=== PATIENT | female | born 1975 | race Caucasian/White ===

== ENCOUNTER 2017-01-25 17:14 | Emergency (ER) | payer OTHER | END 2017-01-25 20:35 | disposition home or self-care (01) | LOC: ER1 17:14 | DX: S02.5XXA Fracture of tooth (traumatic), initial encounter for closed fracture (principal); I10 Essential (primary) hypertension; F17.210 Nicotine dependence, cigarettes, uncomplicated; Z88.5 Allergy status to narcotic agent; X58.XXXA Exposure to other specified factors, initial encounter | CPT/HCPCS: 96372; 99282; J1885 ==

== ENCOUNTER 2017-02-19 22:58 | Emergency (ER) | payer OTHER ==
[2017-02-19 23:25] LABS: HEMOGLOBIN 14.6 gm/dl (12.3-15.3); RED BLOOD COUNT 5.23 M/UL (4.00-5.10); WHITE BLOOD COUNT 12.4 K/UL (4.5-11.0)
[2017-02-19 23:50] LABS: BUN/CREATININE RATIO 13 (0-10)
== END 2017-02-20 04:10 | disposition home or self-care (01) ==
LOC: ER1 22:58
PROVIDERS: Physician Assistant
DX: R07.9 Chest pain, unspecified (principal); E87.6 Hypokalemia; F41.9 Anxiety disorder, unspecified; F17.200 Nicotine dependence, unspecified, uncomplicated; Z88.0 Allergy status to penicillin; Z88.5 Allergy status to narcotic agent; Z79.899 Other long term (current) drug therapy
CPT/HCPCS: 36415; 71020; 80053; 82550; 82553; 83874; 84484; 85025; 93005; 99285

== ENCOUNTER 2020-10-17 09:58 | Emergency (ER) | payer OTHER ==
[~2020-10-17 09:58] MED LIST: AMOXICILLIN500 MG PO; BACLOFEN10 MG PO; CLARITIN10 M1 PO; CLEOCIN 150MG150 MG PO; CLEOCIN HCL300 MG PO; EFFEXOR 25 MG T25 MG PO; EFFEXOR XR150 MG PO; HYDROCHLOROTHIA25 MG PO; IBUPROFEN600 MG PO; PENVEE K 500 M500 MG PO; PHENERGAN 25 MG25 M1 PO; PRILOSEC OTC20 MG PO; TYLENOL 500 MG500 MG PO; VOLTAREN EC 5050 MG PO; Viscous lidocaine2% TOP; ZOFRAN ODT 4 MG4 MG SL; ZOFRAN4 MG PO
== END 2020-10-18 12:15 ==
LOC: ER1 09:58
DX: R45.851 Suicidal ideations (principal); I10 Essential (primary) hypertension; K21.9 Gastro-esophageal reflux disease without esophagitis; F17.200 Nicotine dependence, unspecified, uncomplicated; F32.9 Major depressive disorder, single episode, unspecified; Z20.822 Contact with and (suspected) exposure to COVID-19
CPT/HCPCS: 99285; Q0177; U0002

== ENCOUNTER 2020-11-08 13:27 | Emergency (ER) | payer OTHER ==
[2020-11-08] MEDS ORDERED: IBUPROFEN600 MG PO (16:20)
== END 2020-11-08 17:59 | disposition home or self-care (01) ==
LOC: ER1 13:27
DX: S33.5XXA Sprain of ligaments of lumbar spine, initial encounter (principal); S60.222A Contusion of left hand, initial encounter; S00.83XA Contusion of other part of head, initial encounter; S90.02XA Contusion of left ankle, initial encounter; F17.210 Nicotine dependence, cigarettes, uncomplicated; W19.XXXA Unspecified fall, initial encounter
CPT/HCPCS: 71046; 72131; 73100; 73130; 73610; 96372; 99284; J1885

== ENCOUNTER 2020-11-10 12:49 | Observation (INO) | payer OTHER ==
[~2020-11-10] VITALS: Ht 175.3 cm; Wt 113.4 kg
[2020-11-10 14:01] LABS: HEMOGLOBIN 12.9 gm/dl (12.3-15.3); RED BLOOD COUNT 4.51 M/UL (4.00-5.10); WHITE BLOOD COUNT 9.4 K/UL (4.5-11.0)
[2020-11-10] MEDS ORDERED: CATAPRES 0.1MG0.1 MG PO (18:37)
[2020-11-10] MEDS ORDERED: WELLBUTRIN XL300 M1 PO (18:39)
[2020-11-10] MEDS ORDERED: TRAMADOL HCL50 MG PO (18:40)
[2020-11-10] MEDS ORDERED: GABAPENTIN300 MG PO (18:40)
[2020-11-10] MEDS ORDERED: VISTARIL50 MG PO (21:06)
[2020-11-11 03:41] LABS: HEMOGLOBIN 11.5 gm/dl (12.3-15.3); RED BLOOD COUNT 4.12 M/UL (4.00-5.10); WHITE BLOOD COUNT 7.2 K/UL (4.5-11.0)
--- NOTE | 2020-11-11 09:07 | NUR ---
PATIENT REQUEST FOR ATIVAN AND NICOTINE PATCH. VERBALLY ABUSIVE AND AGRESSIVE THAT REQUIRES HOST/HOSTESS HEAD PRESENCE. [facility]INT HAVE ALREADY 1:1 SITTER. WAS ABLE TO CONTACT MD AND INFORMED OF THE ABOVE AND RECEIVED ORDER.
--- NOTE | 2020-11-11 11:01 | NUR ---
checked patient several times and sleeping comfortably, snoring at times. sitter 1:1
--- NOTE | 2020-11-12 12:57 | NUR ---
in the room and dr. haque ordered not to restart patient IV
--- NOTE | 2020-11-12 17:43 | NUR ---
CONTACTED [employer] [facility] AND WAS ABLE TO SPOKE TO A LADY WITH ACKNOWLEDGEMENT OF RECEIVING THE FAX AND WAS INFORMED TO WAIT FOR A CALL FROM A [employer].
--- NOTE | 2020-11-12 17:59 | NUR ---
FOLLOW UP CALL FOR JIE EVAL AND WAS INFORMED THAT THEY WILL CALL BACK FOR TELEHEALTH EVALUATION. NOTIFIED DR. SMITH AND PATIENT.
[2020-11-12] MEDS ORDERED: NICOTINE PATCH1 EAC2 TOP (19:42)
--- NOTE | 2020-11-13 00:25 | NUR ---
PT ACCEPTED BY [facility]; CALLED REPORT A NURSE ERNA AT APPROX 0020; PT ESCORTED DOWN WITH SITTER AT APPROX 2330. [facility]. NOTIFIED SECURITY HERE OF PT BELONGINGS; PHARMACY WAS CONTACTED. SECURITY RECEIVED PTS BELONGINGS AND BELONGINGS WERE RETURNED TO PT UPON EXITING THE BUILDING.
== END 2020-11-12 23:25 | disposition other institution (70) ==
LOC: ER1 12:49 → CDU 16:06 → M/S 18:09
PROVIDERS: Physician Assistant Medical; ADMIT Internal Medicine Infectious Disease
DX: F32.9 Major depressive disorder, single episode, unspecified (principal); R45.851 Suicidal ideations; F29 Unspecified psychosis not due to a substance or known physiological condition; E87.1 Hypo-osmolality and hyponatremia; E87.6 Hypokalemia; E83.42 Hypomagnesemia; N17.9 Acute kidney failure, unspecified; I10 Essential (primary) hypertension; F17.200 Nicotine dependence, unspecified, uncomplicated; Z20.822 Contact with and (suspected) exposure to COVID-19; Z79.899 Other long term (current) drug therapy
CPT/HCPCS: 36415; 80048; 80053; 80307; 81001; 82436; 82570; 83735; 83930; 83935; 84132; 84133; 84300; 84439; 84443; 85025; 85027; 93005; 99285; G0378; J2060; J3475; J7040; Q0177; U0002

== ENCOUNTER 2021-01-07 14:19 | Emergency (ER) | payer OTHER ==
[~2021-01-07 14:19] MED LIST changes: +CATAPRES 0.1MG0.1 MG PO; +GABAPENTIN300 MG PO; +NICOTINE PATCH1 EAC2 TOP; +TRAMADOL HCL50 MG PO; +VISTARIL50 MG PO; +WELLBUTRIN XL300 M1 PO
[2021-01-07] MEDS ORDERED: AUGMENTIN 875-1 EACH PO (15:46)
== END 2021-01-07 15:56 | disposition home or self-care (01) ==
LOC: ER1 14:19
DX: M25.532 Pain in left wrist (principal); H66.91 Otitis media, unspecified, right ear; I10 Essential (primary) hypertension; F17.290 Nicotine dependence, other tobacco product, uncomplicated; Z79.899 Other long term (current) drug therapy
CPT/HCPCS: 73110; 99283

== ENCOUNTER 2021-01-24 15:18 | Inpatient (IN) | payer OTHER ==
[~2021-01-24] VITALS: Ht 175.3 cm; Wt 133.6 kg
[~2021-01-24 15:18] MED LIST changes: +AUGMENTIN 875-1 EACH PO
[2021-01-24 17:09] LABS: HEMOGLOBIN 12.8 gm/dl (12.3-15.3); RED BLOOD COUNT 4.39 M/UL (4.00-5.10)
[2021-01-24 17:37] LABS: BUN/CREATININE RATIO 10 (0-10)
[2021-01-24] MEDS ORDERED: HYDROCHLOROTHIA50 MG PO (20:37)
[2021-01-24] MEDS ORDERED: PHENERGAN 25 MG25 M1 PO (20:37)
[2021-01-24] MEDS ORDERED: FLONASE 0.05% N16 GM (20:37)
[2021-01-24] MEDS ORDERED: NAPROXEN375 MG PO (20:37)
[2021-01-24] MEDS ORDERED: VITAMIN B COMP1 EACH PO (20:38)
[2021-01-24] MEDS ORDERED: OMEPRAZOLE40 MG PO (20:38)
[2021-01-24] MEDS ORDERED: TRAMADOL HCL50 MG PO (20:39)
[2021-01-24] MEDS ORDERED: LISINOPRIL20 MG PO (20:39)
[2021-01-24] MEDS ORDERED: LIORESAL TAB 1010 MG PO (20:39)
[2021-01-24] MEDS ORDERED: VISTARIL 50 MG50 MG PO (20:40)
[2021-01-24] MEDS ORDERED: XANAX0.5 MG PO (20:44)
[2021-01-24] MEDS ORDERED: VENLAFAXINE HC150 M1 PO (20:46)
--- NOTE | 2021-01-25 03:46 | NUR ---
SINCE ARRIVING TO FLOOR, PT HAS BEEN RUDE, DEMANDING AND BELITTING TO STAFF. DATA SCIENTIST MADE AWARE. PT BEGAN REFUSING STONE CATHETER, EVEN THOUGH SHE CLAIMED TO NOT HAVE URINATED IN 2 DAYS TIME. AFTER ONE HOUR OF CONVINCING EDUCATION, PT AGREED TO STONE CATHETER INSERTION. PT IS NOT AN EASY IV STICK. PT HAD IV IN LAC WITH CONTINUOUS FLUIDS RUNNING. PT NEEDED NEW IV. AFTER 2 STICKS BY MARILOU MALLOY RN, PT OBTAINED 20G TO RAC. PT STILL C/O ISSUES, BUT REFUSES TO LEAVE ARM STRAIGHT EVEN WITH USE OF ARM BOARD. PT CONTINUALLY EDUCATED ABOUT NEED TO KEEP ARM AT 180 DEGREE ANGLE. NO STAFF AVAILABLE TO PROVIDE US GUIDED IV D/T PT REFUSING 3RD STICK FROM PREVIOUS RN. PT DEMANDED THAT STONE CATHETER BE REMOVED AT 0330. PROPER AND THOROUGH EDUCATION PROVIDED ABOUT NEED R/T WEAKNESS AND CONDITION AND ORDER FOR STRICT I&O. MADE AWARE. SEDA
[2021-01-25 04:48] LABS: HEMOGLOBIN 12.6 gm/dl (12.3-15.3); RED BLOOD COUNT 4.39 M/UL (4.00-5.10); WHITE BLOOD COUNT 10.5 K/UL (4.5-11.0)
--- NOTE | 2021-01-25 19:24 | NUR ---
0800 Patient requesting pain med, Neurontin & Xanax at this time, explained her meds had not been reconciled by doctor yet. IV hurting arm, reqluested it be removed from arm, refused to have another IV started. Dr Mosquera called to inform, stated she has to have IV fluids. Patient agreed. Lab staff came to draw labs, she refused. Told patient she had to have labs drawn, she agreed. 0900 Patient out in hallway looking for nurse, stated she had to have her Xanax. Patient told to please ring call light & not to be out in ramos. Dr Mosquera called, stated he was reviewing her meds at this time. When meds given to patient she requested her Neurontin. Dr Mosquera stated he would not reorder it because of her kidney function. 1000 Patient requesting Ativan IV, given as ordered. Encouraged patient to lay down & rest. She will not use call light, yells at staff from room. 1230. Patient called Dietary & ordered another tray, stated the 1st one was cold, when she had eaten the 1st one. At dinner she ate the food off the tray & then the tray fell in the floor, again she ordered another tray. 1300 Patient slept for approximately 2 hrs then she was yelling at staff with her requests from her room. Encouraged patient again to please use call light. Patient continuously bending right arm, IV in AC, even though she has an arm board on it. Explained to patient, she was a hard stick & if she kept bending her arm, she would lose that IV. 1600 Patient's mother at bedside, requested staff make her bed on the couch because it was hard for her to bend over. 1700 Patient has continuously requested pain meds today, even though Dr Mosquera stated he would not order her anymore.
--- NOTE | 2021-01-26 10:43 | NUR ---
PT REFUSED TO HAVE LABS DRAWN AT 0700. AT 0800. AT 0900 AND AT 1000. PT WAS EDUCATED ON IMPORTANCE OF LABS TO LOOK AT ELECTROLYTES FOR APPROPRIATE COURSE OF TX BY THE PHYSICIANS. PT STATED THAT SHE HAD ALREADY BEEN STUCK EVERYDAY AND SHE WAS TIRED OF IT AND WOULD NOT CONSENT TO ANYMORE LAB DRAWS. DR PETERSON WAS NOTIFIED. DR PETERSON RECOMMENDED CALLING DR PEÑA AND INFORMING HIM ALSO. THIS WAS DONE. PT CANNOT RECEIVE APPROPRIATE TX WITHOUT THESE LABS. DR PETERSON WILL DISCHARG THE PT. PT ALSO REFUSES ABX. THE ONLY MEDS THAT THE PT WISHES TO RECEIVE ARE PAIN MEDS, GABAPENTIN AND ATIVAN. SHE RECEIVED EDUCATION ON THIS WELL AND CONTINUES TO BE NONCOMPLIANT WITH HER REGIMEN.
[2021-01-26] MEDS ORDERED: AMLODIPINE BESY10 MG PO (10:51)
--- NOTE | 2021-01-26 11:04 | NUR ---
PLY SPLICER NOTIFIED OF PT REFUSING LABSBUT ALSO REFUSING TO BE DISCHARGED. KAUSHAL WENT INTO PT ROOM AND DISCUSSED THESE ISSUES WITH PT PER MD RECOMMENDATION. PT STATES THAT SHE WILL "GO HOME TOMORROW BUT NOT TODAY" EVEN THOUGH SHE IS UNCOOPERATIVE WITH HER TX PLAN. BRANDI .
[2021-01-26 12:03] LABS: HEMOGLOBIN 12.1 gm/dl (12.3-15.3); RED BLOOD COUNT 4.17 M/UL (4.00-5.10)
[2021-01-26 12:09] LABS: WHITE BLOOD COUNT 6.8 K/UL (4.5-11.0)
[2021-01-27 02:58] LABS: HEMOGLOBIN 11.3 gm/dl (12.3-15.3); RED BLOOD COUNT 3.97 M/UL (4.00-5.10); WHITE BLOOD COUNT 7.8 K/UL (4.5-11.0)
--- NOTE | 2021-01-27 14:56 | NUR ---
0930 CALLED [facility] PT REQUEST FOR A RIDE HOME. WHEN I INFORMED MS VARGAS (WHO IS PATIENTS MOTHER) THAT SHE WAS BEING DISCHARGED, SHE PROCEEDED TO SCREAM AND CURSE AT ME SAYING THAT SHE ALREADY KNEW THAT SHE WAS BEING DISCHARED BECAUSE VON HAD ALREADY CALLED HER BUT SHE HAS TO GO TO [place] AND GET STUFF DONE AND WOULD COME GET HER LATER AND HUNG UP THE PHONE. I ATTEMPTED TO CALL MS VARGAS BACK AND THERE WAS NO ANSWER. PT STATED THAT HER MOM WAS COMING TO GET HER AFTER [place] THAT SHE HAD TALKED TO HER ON HER CELL PHONE. PT DENIED [employer] OR [employer] SERVICES THAT WERE OFFERED TO HER AND SAID THAT SHE WANTED TO WAIT FOR [facility] TO COME DRIVE HER HOME. AND GEOPHYSICAL PROSPECTOR MADE AWARE.
== END 2021-01-27 15:45 | disposition home or self-care (01) | DRG 683 ==
LOC: ER1 15:18 → M/S 18:39 → CDU 18:39 → M/S 20:00
PROVIDERS: Internal Medicine; Internal Medicine Nephrology; Physician Assistant; ADMIT Internal Medicine
DX: N17.9 Acute kidney failure, unspecified (principal); M62.82 Rhabdomyolysis; E87.1 Hypo-osmolality and hyponatremia; N39.0 Urinary tract infection, site not specified; E87.2 Acidosis; Z20.822 Contact with and (suspected) exposure to COVID-19; I10 Essential (primary) hypertension; F41.9 Anxiety disorder, unspecified; F17.210 Nicotine dependence, cigarettes, uncomplicated; E86.1 Hypovolemia; E83.42 Hypomagnesemia; F31.9 Bipolar disorder, unspecified; E66.9 Obesity, unspecified; M60.9 Myositis, unspecified; Z98.51 Tubal ligation status; Z79.899 Other long term (current) drug therapy; Z68.39 Body mass index [BMI] 39.0-39.9, adult
CPT/HCPCS: 36415; 71045; 80048; 80053; 81001; 82436; 82550; 82553; 82570; 83605; 83690; 83735; 83874; 84100; 84133; 84300; 84439; 84443; 84484; 84703; 85025; 86140; 93005; 93970; 99285; J1335; J1650; J2060; J3475; J7030; J7120; Q0177; U0002

== ENCOUNTER 2021-02-20 16:10 | Emergency (ER) | payer OTHER ==
[~2021-02-20 16:10] MED LIST changes: +AMLODIPINE BESY10 MG PO; +FLONASE 0.05% N16 GM; +HYDROCHLOROTHIA50 MG PO; +LIORESAL TAB 1010 MG PO; +LISINOPRIL20 MG PO; +NAPROXEN375 MG PO; +OMEPRAZOLE40 MG PO; +VENLAFAXINE HC150 M1 PO; +VISTARIL 50 MG50 MG PO; +VITAMIN B COMP1 EACH PO; +XANAX0.5 MG PO
== END 2021-02-20 22:15 ==
LOC: ER1 16:10
DX: R45.851 Suicidal ideations (principal); I10 Essential (primary) hypertension; F17.200 Nicotine dependence, unspecified, uncomplicated; Z20.822 Contact with and (suspected) exposure to COVID-19
CPT/HCPCS: 96374; 99285; J2060; U0002